=== PATIENT | male | born 1980 | race Caucasian/White ===

== ENCOUNTER → 2016-08-16 | Day surgery (SDC) | payer OTHER ==
[2016-08-15 09:43] VITALS: BMI 30.7
[~2016-08-16] MED LIST: LACTATED RINGERS 1,000 ML IV SCH
--- NOTE | 2016-08-16 11:56 | P.PN ---
Progress Note - Text She was scheduled to have lumbar epidural steroid injection, patient came on time , but we couldn't start the procedure on time because there was delay , patient reported that he has to reschedule, and today we have to do blood toxicology screening, because patient was not able to urinate ( he give less than 1 mL of urine, which is not enough to do the UDS ) the previous urine drug screen was positive for marijuana, but there was no confirmation, and I spoke to the lab and they said that has to be confirmed, and we have to repeat the test and sent for confirmation, patient given prescription refill today for [place] 5/325 every 6 hours dispensed 90, and next visit we will check the results of blood toxicology screening , deficits positive for any illegal drugs , then the patient will be discharged from the clinic
[2016-08-17 11:57] LABS: Serum Amphetamine Negative; Serum Barbiturates Negative; Serum Benzodiazepine Negative; Serum Cocaine Negative; Serum Methadone Negative; Serum Opiates Negative; Serum Phencyclidine Negative; Serum Propoxyphene Negative; Serum THC (Cannabis) Positive
[2016-09-14 09:23] LABS: CPT Code NC
== END ==
LOC: ORPAIN 09:48
PROVIDERS: ATTEND Specialist
DX: M51.36 Other intervertebral disc degeneration, lumbar region (principal); Z53.8 Procedure and treatment not carried out for other reasons
CPT/HCPCS: 80307; 80356; 80361

== ENCOUNTER 2016-09-15 07:21 | Day surgery (SDC) | payer OTHER ==
[2016-09-13 12:24] VITALS: BMI 30.7
[2016-09-15 07:53] VITALS: RESP 18; TEMP 98.3
[2016-09-15] MEDS ORDERED: fentaNYL (PF) 50 MCG/ML 2 ML AMP ONE (08:52)
[2016-09-15] MEDS ORDERED: MIDAZOLAM 2 MG/2 ML VIAL ONE (08:52)
[2016-09-15] MEDS ORDERED: TRIAMCINOLONE ACETONIDE 40 MG/ML 1 ML VIAL ONE (08:52)
[2016-09-15] MEDS ORDERED: IOHEXOL 180 MG/ML 1 ML ML ONE (08:52)
--- NOTE | 2016-09-15 09:11 | P.PCN ---
Date of Procedure: 09/15/16 Procedure(s) Performed: PREOPERATIVE DIAGNOSIS: 1- Lumbar Herniated Disc Diseases 2-Lumbar Radiculopathy POSTOPERATIVE DIAGNOSIS: Same as preoperative diagnosis. PROCEDURE 1. Lumbar epidural steroid injection under fluoroscopic guidance at the L5-S1 level. 2. Lumbar epidurogram. ANESTHESIA: Local with 1% lidocaine 3 ml and IV sedation with Versed 2 mg , and fentanyle 100 Mcg EBL: Minimal PROCEDURE INDICATION: The patient with low back pain and radiculitis symptoms unresponsive to conservative treatment. Fluoroscopy was used to optimize visualization of the needle placement and to maximize safety. PROCEDURE DESCRIPTION / TECHNIQUE: The patient was seen and identified in the preoperative area. Risks, benefits , complications including but not limited to infections ,bleeding ,allergic reaction to the medications ,nerve damage and not complete pain releife , and alternatives were discussed with the patient. The patient agreed to proceed with the procedure and signed the consent. IV was started, and vital signs were stable. Patient was taken to the OR and time out was completed. The patient was placed in the prone position on procedure table and a pillow was placed under the abdomen to reduce lumbar lordosis. The lumbosacral area was prepped and draped in the usual sterile fashion.ere closely monitored during the procedure. Conscious sedation was used during the procedure to decrease patients anxiety. Vital signs was monitered during the entire procedure. Using anterior-posterior fluoroscopy, the L5-S1 interlaminar space was identified and the skin over this site was marked and then infiltrated with 1% lidocaine subcutaneously. Subsequently, a 20-gauge Tuohy epidural needle was inserted and advanced toward the epidural space using the ``Loss of resistance technique and guided by AP and lateral fluoroscopy. The correct needle position in the epidural space was verified with the injection of 2 mL of the water soluble contrast dye Omnipaque 180 contrast and observing an excellent epidurogram with the epidural spread of the dye, after negative aspiration for blood and CSF and in the absence of paresthesias. Again after negative aspiration, a 6 ml mixture containing 80 mg of Kenalog and 2 ml of preservative free Normal Saline, and 2 ml of preservative free lidocaine 1% solution was injected and a washout of epidurogram was seen. Needle was withdrawn intact, skin was cleansed, and bandages were applied. COMPLICATIONS: None DISPOSITION / PLANS: The patient was placed in a supine position and transferred to the recovery area in a stable condition for observation. There was no evidence of lower extremity motor or sensory deficit after the procedure. Patient was discharged from the recovery room after meeting discharge criteria. Home discharge instructions were given to the patient by the staff. The patient was reexamined prior to discharge. The patient will schedule a follow up in the clinic in 2-4 weeks. The patient also referred to Dr.Nick Tapia ( pain management ) for evaluation and patient continued to have severe low back pain with radiation to the left lower extremity but he used marijuana and as per [facility] policy we cannot give him any narcotics, for this reason patient was referred to the [facility] for evaluation
[2016-09-15] MEDS ORDERED: IV FLUID CONTINUATION 1,000 ML IV ONE (09:15)
--- NOTE | 2016-09-15 09:29 | FL ---
EXAMINATION TYPE: FL guided pain mgmt statistic DATE OF EXAM: 09/15/2016 9:10 AM CLINICAL HISTORY: Low back pain. TECHNIQUE: Fluoroscopy. COMPARISON: None. FINDINGS: Fluoroscopic guidance was provided during pain relief procedure performed by Dr. Cobian . A total of 1 seconds of fluoroscopic time was utilized during the procedure and single spot images acquired. Single image acquired shows needle localization at level of L5. IMPRESSION: As Above.
[2016-09-15 09:35] VITALS: BP 112/76; PULSE 57
== END 2016-09-15 09:44 | disposition home or self-care (01) ==
LOC: ORPAIN 07:21
PROVIDERS: ATTEND Specialist
DX: M51.16 Intervertebral disc disorders with radiculopathy, lumbar region (principal)
CPT/HCPCS: 62323; J2250; J3301; Q9965; J3010

== ENCOUNTER → 2016-10-17 | Outpatient (CLI) | payer OTHER ==
[2016-10-17 12:15] VITALS: BP 123/89; PULSE 69; RESP 20; TEMP 97.8
--- NOTE | 2016-10-17 13:40 | P.PN ---
Subjective This is follow-up visit for this patient with a history of severe and chronic low back pain with radiation to the left lower extremity secondary to lumbar herniated disc disease , we have done interventional pain management injection, lumbar epidural steroid injection and this helped his low back pain significantly He continued to have numbness and tingling sensation in the left lower extremity, and because he uses marijuana we cannot give him any prescription from [facility] pain clinic Physical Examinations : 1-Constitutiona : Cooperative , not in acute distress . 2-HEENT : nech ; supple , no Lymphadenopathy , no Thyromegaly , normal thyroid size . eyes : no ptosis , no icterus, no photophobia . ENT : normal of hearing , normal oropharynx , no Thrush . 3- Respiratory : Chest clear to auscultations Bilaterally , no wheezing , no Rhonchi . 4- Cardiovascular : regular rate and rhythem , S1 , S2 , no S3 , no S4. 5- Gastrointestinal : abdomen soft no tenderness , bowel sounds positive all four quadrents , no organomegally . 6- Genitourinary : Defferred . 7- neurologic : Cranial nerve II to XII intact , no focal neurological deffecit . 8-psychatric : alert , oriented X 3 , appropriate affect , intact judgment and insight . 9-Lymphatic : no Lymphadenopathy . 10- musculoskeltal : exams of the Lumber spine = motor strength lower extremities ,thigh and legs .5/5 deep tendon reflexes : normal Knee Jerk , normal ankle Jerk . lumber facet Loading Test positive strait leg raising test positive at 30 degree ,LT , negative on the right side, Fabere test positive LT . Negative right Range of motion: Range of motion in flexion of the lumbar spine 30 degrees Range of motion range of motion of extension of the lumbar spine 10 Assessment and plan = - Lumbar radiculopathy, lumbar herniated disc disease - diagnoses, prognosis, and treatment options including but not limited to physical therapy, surgical interventions, interventional therapies , and medication management including narcotics and adjuvant medication were discussed with the patient all The questions answere -procedure= repeat lumbar epidural steroid injection L5-S1 left paramedian approach Objective - Vital Signs Vital signs: Vital Signs Temp 97.8 F 10/17/16 12:08 Pulse 69 10/17/16 12:08 Resp 20 10/17/16 12:08 BP 123/89 10/17/16 12:08 Pulse Ox 97 10/17/16 12:08 Intake & Output 10/16/16 10/17/16 10/17/16 18:59 06:59 18:59 Weight 99.79 kg
== END | disposition home or self-care (01) ==
LOC: PNWHC3 11:48
PROVIDERS: ATTEND Specialist
DX: M51.16 Intervertebral disc disorders with radiculopathy, lumbar region (principal); G89.29 Other chronic pain
CPT/HCPCS: 99211

== ENCOUNTER 2020-03-07 17:24 | Emergency (ER) | payer OTHER ==
[2020-03-07 17:39] VITALS: TEMP 98.5
[2020-03-07] MEDS ORDERED: KETOROLAC 30 MG/ML 1 ML VIAL IM STA (17:56)
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
--- NOTE | 2020-03-07 18:28 | XR ---
EXAMINATION TYPE: XR chest 2V DATE OF EXAM: 03/07/2020 COMPARISON: NONE HISTORY: Pain TECHNIQUE: 2 views FINDINGS: Heart and mediastinum are normal. Lungs are clear. Diaphragm is normal. Bony thorax appears normal. IMPRESSION: Normal chest.
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
[2020-03-07] MEDS ORDERED: ACET/COD 300 MG/30 MG STARTER PACK 6 TAB BTL PO STA (19:06)
[2020-03-07 19:22] VITALS: BP 132/86; PULSE 86; RESP 16
== END 2020-03-07 19:23 | disposition home or self-care (01) ==
LOC: EC 17:24
DX: M51.26 Other intervertebral disc displacement, lumbar region (principal); F17.200 Nicotine dependence, unspecified, uncomplicated; V49.40XA Driver injured in collision with unspecified motor vehicles in traffic accident, initial encounter
CPT/HCPCS: 99284; 96372; 71046; 72131; J1885